=== PATIENT | female | born 2000 | race Caucasian/White ===

== ENCOUNTER 2022-09-14 15:06 | Outpatient (CLI) | payer OTHER, SELFPAY ==
[2022-09-14 22:58] LABS: GC DNA Amplified* NOT DETECTED (No Detected)
[2022-09-14 23:54] LABS: Chlamydia DNA Amplified* DETECTED (No Detected)
== END 2022-09-14 15:07 | disposition home or self-care (01) ==
PROVIDERS: PCP Physician Assistant Medical; Visit Provider Physician Assistant
DX: Z11.3 Encounter for screening for infections with a predominantly sexual mode of transmission (principal)
CPT/HCPCS: 87491; 87591